=== PATIENT | female | born 1955 | race Caucasian/White ===

== ENCOUNTER 2021-11-11 14:30 | Emergency (ER) | payer MEDICARE, OTHER, SELFPAY ==
[2021-11-11 15:03] VITALS: BP 128/95; PULSE 83; RESP 18; TEMP 36.8; O2SAT 97; BMI 28.3
--- NOTE | 2021-11-11 15:05 | EXP.UTC ---
Discharge Plan Disposition Patient Disposition: Home, Self-Care Condition: Good Prescriptions Prescriptions: New phenazopyridine 200 mg Tablet 200 mg PO TID 2 Days Qty: 6 0RF ciprofloxacin HCl [Cipro] 500 mg tablet 500 mg PO BID 7 Days Qty: 14 0RF No Action cyclobenzaprine [Flexeril] 10 mg Tablet 10 mg PO HS buspirone 5 mg tablet 5 mg PO DAILY atorvastatin 20 mg Tablet 20 mg PO HS clonazepam 0.5 mg tablet 0.5 mg PO HS Label Comments: TAKE 1 TABLET BY MOUTH ONCE DAILY carvedilol [Coreg] 3.125 mg Tablet 3.125 mg PO BID Rx Instructions: must administer with a meal/food Low-Dose Aspirin 81 mg Tablet 81 mg PO DAILY lisinopril 5 mg Tablet 5 mg PO DAILY dexlansoprazole [Dexilant] 30 mg Capsule,Biphase Delayed Releas 30 mg PO DAILY Linzess 72 mcg capsule 72 mcg PO DAILY Label Comments: TAKE 1 CAPSULE BY MOUTH ONCE DAILY Referrals Follow up/Referrals: Ray Cabral APRN [Primary Care Provider] - See instructions Activity Restrictions/Add. Instructions Additional Instructions/Restrictions: Drink plenty of fluids. Take tylenol or ibuprofen for pain or fever. Take the medications as directed. Follow up with your regular doctor. GO TO THE ER FOR ANY WORSENING SYMPTOMS The pyridium will make your urine turn orange, this is an expected side effect. It will stain your clothes if it comes into contact with them. We will culture the urine. That will tell what bacteria is causing your infection and which antibiotics will treat it best. Sometimes the first antibiotic we prescribe turns out to not work against different bacteria. So, make sure you follow up within 3 days if you are not getting better. Clinical Impressions Clinical Impression: UTI (urinary tract infection) Discharge ED Provider: Nic Vela [facility] General Stated complaint: possible UTI, pain in Rt side into back Time Seen by Provider: 11/11/21 15:05 History of Present Illness Provider Complaint: She states that for the past 1 week she has had dysuria and low back pain. She had left over cipro that she took for 2 days and helped her symptoms. She states that after she ran out of cipro her symptoms have returned. Related Data Home Medications Medication Instructions Recorded Confirmed aspirin 81 mg tablet 81 mg PO DAILY Heart disease 11/11/21 11/11/21 atorvastatin 20 mg tablet 20 mg PO HS Cholesterol 11/11/21 11/11/21 buspirone 5 mg tablet 5 mg PO DAILY Anxiety 11/11/21 11/11/21 carvedilol 3.125 mg tablet (Coreg) 3.125 mg PO BID Heart disease 11/11/21 11/11/21 clonazepam 0.5 mg tablet 0.5 mg PO HS SLEEP 11/11/21 11/11/21 cyclobenzaprine 10 mg tablet 10 mg PO HS Pain 11/11/21 11/11/21 dexlansoprazole 30 mg 30 mg PO DAILY GERD 11/11/21 11/11/21 capsule,biphase delayed release (Dexilant) linaclotide 72 mcg capsule 72 mcg PO DAILY IBS 11/11/21 11/11/21 (Linzess) lisinopril 5 mg tablet 5 mg PO DAILY High blood pressure 11/11/21 11/11/21 Previous Rx's Medication Instructions Recorded ciprofloxacin HCl 500 mg tablet 500 mg PO BID 7 days #14 tabs 11/11/21 (Cipro) phenazopyridine 200 mg tablet 200 mg PO TID 2 days #6 tabs 11/11/21 Allergies Allergy/AdvReac Type Severity Reaction Status Date / Time acetaminophen [From Percocet] Allergy Verified 11/11/21 15:02 chlorzoxazone Allergy Verified 11/11/21 15:02 [From Parafon Forte] oxycodone [From Percocet] All[facility]11[facility]21 [facility] Social History Smoking Status: Never smoker alcohol intake: never current occupational status: employed Travel in the last 8 weeks: None ROS Obtained: Yes All systems reviewed & no additional complaints except as documented Constitutional Constitutional: Reports system reviewed and no additional complaints, except as documented, Denies chills and Denies
[2021-11-11 15:07] LABS: Apearance,Urine Clear (Clear); Color,Urine Yellow (Yellow); PH,Urine 5.5 (5.0-8.5)
[2021-11-11 15:08] LABS: Bilirubin,Urine Negative (Negative); Blood, Urine Negative (Negative); Glucose,Urine (UA) Negative (Negative); Ketones,Urine Negative (Negative); Protein,Urine Negative (Negative); UTC Leukocyte Esterase,Urine Negative (Negative); UTC Nitrate,Urine Negative (Negative); Urobilinogen,Urine 0.2 EU/dl (0.2)
[2021-11-11 15:49] VITALS: BP 128/95; PULSE 83; RESP 17; TEMP 36.8; O2SAT 97
== END 2021-11-11 15:51 | disposition home or self-care (01) ==
PROVIDERS: Emergency Provider Nurse Practitioner Family; PCP Nurse Practitioner Family
DX: N39.0 Urinary tract infection, site not specified (principal); B96.1 Klebsiella pneumoniae [K. pneumoniae] as the cause of diseases classified elsewhere; Z16.11 Resistance to penicillins; Z16.29 Resistance to other single specified antibiotic
CPT/HCPCS: 81003; 87086; 87088; 87186; 99212; G0463